=== PATIENT | female | born 1940 | race Caucasian/White ===

== ENCOUNTER 2020-08-26 09:58 | Outpatient (CLI) | payer MEDICARE, SELFPAY ==
--- NOTE | ~2020-08-26 | MM_ITS ---
EXAMINATION: MM screening felix BI w luigi HISTORY: Screening mammogram, family history of breast cancer in her sister. TECHNIQUE: Craniocaudal and mediolateral oblique 3-D tomosynthesis images were obtained and synthetic 2-D images were generated. CAD analysis was submitted and interpreted. COMPARISON: 08/23/2019, 08/19/2018, 08/16/2017 BREAST PARENCHYMAL COMPOSITION: The breasts are almost entirely fatty. FINDINGS: There is no evidence of suspicious mass, calcification, or architectural distortion to sugg est malignancy in either breast. There has been no suspicious interval change. IMPRESSION: 1. No mammographic evidence of malignancy. 2. Recommend routine screening mammography in one year. BI-RADS Category 1: Negative Reviewed, dictated and finalized at location A. E REPAIRER
== END 2020-08-26 09:59 | disposition home or self-care (01) ==
PROVIDERS: PCP Family Medicine Adolescent Medicine; Visit Provider Obstetrics & Gynecology
DX: Z12.31 Encounter for screening mammogram for malignant neoplasm of breast (principal)
CPT/HCPCS: 77063; 77067

== ENCOUNTER 2021-08-28 10:10 | Outpatient (CLI) | payer MEDICARE, SELFPAY ==
--- NOTE | ~2021-08-28 | MM_ITS ---
EXAMINATION: MM screening felix BI w luigi HISTORY: Screening mammogram TECHNIQUE: Craniocaudal and mediolateral oblique 3-D tomosynthesis images were obtained and synthetic 2-D images were generated. CAD analysis was submitted and interpreted. COMPARISON: 08/26/2020, 08/23/2019, 08/19/2018 bilateral screening mammogram examinations BREAST PARENCHYMAL COMPOSITION: The breasts are almost entirely fatty. FINDINGS: There is no evidence of suspicious mass, calcification, or architectural distortion to sugg est malignancy in either breast. There has been no suspicious interval change. IMPRESSION: 1. No mammographic evidence of malignancy. 2. Recommend routine screening mammography in one year. BI-RADS Category 1: Negative Reviewed, dictated and finalized at location A. TARY LANDFILL OPERATOR
== END 2021-08-28 10:11 | disposition home or self-care (01) ==
LOC: ANHIMG 10:12
PROVIDERS: PCP Family Medicine Adolescent Medicine; Visit Provider Obstetrics & Gynecology
DX: Z12.31 Encounter for screening mammogram for malignant neoplasm of breast (principal)
CPT/HCPCS: 77063; 77067

== ENCOUNTER 2022-11-24 15:39 | Outpatient (CLI) | payer MEDICARE, SELFPAY ==
--- NOTE | ~2022-11-24 | MM_ITS ---
EXAMINATION: MM screening felix BI w luigi HISTORY: Screening mammogram TECHNIQUE: Craniocaudal and mediolateral oblique 3-D tomosynthesis images were obtained and synthetic 2-D images were generated. CAD analysis was submitted and interpreted. COMPARISON: 08/28/2021, 08/26/2020, 08/23/2019 bilateral screening mammogram examinations BREAST PARENCHYMAL COMPOSITION: The breasts are heterogeneously dense, which may obscure small masses . FINDINGS: There is no evidence of suspicious mass, calcification, or architectural distortion to sugg est malignancy in either breast. There has been no suspicious interval change. IMPRESSION: 1. No mammographic evidence of malignancy. 2. Recommend routine screening mammography in one year. BI-RADS Category 1: Negative Reviewed, dictated and finalized at location A.
== END 2022-11-24 15:40 | disposition home or self-care (01) ==
LOC: ANHIMG 15:40
PROVIDERS: PCP Family Medicine Adolescent Medicine; Visit Provider Obstetrics & Gynecology
DX: Z12.31 Encounter for screening mammogram for malignant neoplasm of breast (principal)
CPT/HCPCS: 77063; 77067

== ENCOUNTER 2023-01-19 02:50 | Day surgery (SDC) | payer MEDICARE, SELFPAY ==
[2023-01-07 15:12] VITALS: BMI 28.5
[2023-01-19 09:33] VITALS: BP 196/63; PULSE 52; RESP 18; TEMP 36.6; O2SAT 100
[2023-01-19] MEDS: LACTATED RINGERS 1,000 ML 150 ML IV CONT (09:38)
--- NOTE | 2023-01-19 10:03 | PM.HPGS ---
History of Present Illness History of Present Illness Consent: Risks, benefits, and alternatives have been discussed and questions answered. Patient agrees to proceed with procedure. Chief complaint: neoplasm screening Narrative: Olinda Lopez is a 82 year old female Presents for screening colonoscopy. patient has a history of colon polyps. Two thousand 18 adenomatous colon polyp removed from the colon. Patient gives a family history of colon cancer in her brother. Patient reports that recently she has had intermittent bright red blood per rectum that she attributes to hemorrhoids. Is appears to worsen when she drinks coffee. Patient presents today for screening colonoscopy. Review of Systems Review of Systems: Review of systems noncontributory. [facility] Past Medical History Medical History (Updated 01/19/23 @ 10:06 by Domo Ocasio MD) Abnormal colonoscopy 11/28 Polyps Repeat 12/03 History of depression Surgical History Surgical History History of appendectomy History of hysterectomy History of thyroidectomy Family History Family History (Updated 04/27/22 @ 10:33 by Indio Small MD) Sibling Breast cancer Father Heart disease Mother Diabetes mellitus Sibling Hypertension Diabetes mellitus Other Family history of alcoholism Family history of arthritis Family history of cardiovascular disease Family history of malignant neoplasm Family history of mental disorder Social History Social History Smoking status: Never smoker Alcohol intake: never Alcohol use details: several years ago Substance use: never Substance use type: does not use Living arrangements: alone Occupation/Education: retired Gender identity (if verbalized by the patient): Female Sexual Orientation (if Verbalized by the Patient): Straight or Heterosexual Spiritual care concerns: No Agree to blood products: Yes Meds Home Medications and Allergies Home Medications Medication Instructions Recorded Confirmed Type acetaminophen 500 mg/15 mL oral 1,000 mg PO Q6H PRN pain 10/27/21 01/19/23 History liquid ascorbic acid (vitamin C) 500 mg 250 mg PO DAILY 10/27/21 01/19/23 History tablet multivitamin 1 tablet PO DAILY 10/27/21 01/19/23 History resveratrol 100 mg capsule 100 mg PO DAILY 10/27/21 01/19/23 History Cinnamon 1 tab-cap PO DAILY 01/07/23 01/19/23 History levothyroxine 75 mcg tablet 75 mcg PO DAILY 01/19/23 01/19/23 History (Synthroid) losartan 100 mg tablet 100 mg PO DAILY 01/19/23 01/19/23 History metoprolol tartrate 75 mg tablet 75 mg PO BID 01/19/23 01/19/23 History rosuvastatin 10 mg tablet 10 mg PO DAILY 01/19/23 01/19/23 History Allergies Allergy/AdvReac Type Severity Reaction Status Date / Time amlodipine Allergy Severe throat Verified 01/19/23 09:30 closure Sulfa (Sulfonamide Allergy Severe throat Verified 01/19/23 09:30 Antibiotics) swelling chocolate flavor Allergy Intermediate causes Verified 01/19/23 09:30 blood in stool lisinopril Allergy Mild Unknown Verified 01/19/23 09:30 coffee (Coffea arabica) Allergy Unknown Verified 01/19/23 09:30 glycerin AdvReac Intermediate BURNING OF Verified 01/19/23 09:30 SKIN mineral oil AdvReac Unknown BURNING OF Verified 01/19/23 09:30 SKIN Chocolate AdvReac Unknown BURNING Uncoded 01/19/23 09:30 IN COLON Cola Drinks AdvReac Unknown BURNING Uncoded 01/19/23 09:30 IN COLON Vital Signs Vital Signs - 24 hr 01/19/23 09:33 Temperature 97.9 F Pulse Rate 52 L Respiratory Rate 18 Blood Pressure 196/63 H Pulse Oximetry 100 Oxygen Delivery Room Air Exam Narrative: Physical exam reveals patient to be alert. Vital signs stable. HEENT exam is unremarkable. Patient is anicteric. Lungs are clear to auscultation and percussion. Heart is without murm
--- NOTE | 2023-01-19 10:06 | WPDANESEPPF ---
Anes - Initial Pre Proc Eval Procedure: Operation Date: 01/19/23 10:45 Proposed Procedures p Screening Colonoscopy - Domo Ocasio MD Date/Time: 01/19/23 10:06 Surgeon: Domo Ocasio MD Pre Op Diagnosis: neoplasm screening Patient Data Age: 82 Gender: F Height: 1.6 m Weight: 71.9 kg Last Vital Signs Temp 97.9 F 01/19/23 09:33 Pulse 52 L 01/19/23 09:33 Resp 18 01/19/23 09:33 BP 196/63 H 01/19/23 09:33 Pulse Ox 100 01/19/23 09:33 O2 Del Method Room Air 01/19/23 09:33 Allergies Allergy/AdvReac Type Severity Reaction Status Date / Time amlodipine Allergy Severe throat Verified 01/19/23 09:30 closure Sulfa (Sulfonamide Allergy Severe throat Verified 01/19/23 09:30 Antibiotics) swelling chocolate flavor Allergy Intermediate causes Verified 01/19/23 09:30 blood in stool lisinopril Allergy Mild Unknown Verified 01/19/23 09:30 coffee (Coffea arabica) Allergy Unknown Verified 01/19/23 09:30 glycerin AdvReac Intermediate BURNING OF Verified 01/19/23 09:30 SKIN mineral oil AdvReac Unknown BURNING OF Verified 01/19/23 09:30 SKIN Chocolate AdvReac Unknown BURNING Uncoded 01/19/23 09:30 IN COLON Cola Drinks AdvReac Unknown BURNING Uncoded 01/19/23 09:30 IN COLON Home Medications Medication Instructions Recorded Confirmed Type acetaminophen 500 mg/15 mL oral 1,000 mg PO Q6H PRN pain 10/27/21 01/19/23 History liquid ascorbic acid (vitamin C) 500 mg 250 mg PO DAILY 10/27/21 01/19/23 History tablet multivitamin 1 tablet PO DAILY 10/27/21 01/19/23 History resveratrol 100 mg capsule 100 mg PO DAILY 10/27/21 01/19/23 History Cinnamon 1 tab-cap PO DAILY 01/07/23 01/19/23 History levothyroxine 75 mcg tablet 75 mcg PO DAILY 01/19/23 01/19/23 History (Synthroid) losartan 100 mg tablet 100 mg PO DAILY 01/19/23 01/19/23 History metoprolol tartrate 75 mg tablet 75 mg PO BID 01/19/23 01/19/23 History rosuvastatin 10 mg tablet 10 mg PO DAILY 01/19/23 01/19/23 History Patient hx anesthesia problems: none Family hx anesthesia problems: none Results Review: All pre-operative results and documents have been reviewed as part of the pre-operative evaluation. COUNTS INCLUDE 234 BEDS AT THE [facility] Past Medical History Medical History (Updated 01/19/23 @ 10:06 by Domo Ocasio MD) Abnormal colonoscopy 11/28 Polyps Repeat 12/03 History of depression Surgical History Surgical History History of appendectomy History of hysterectomy History of thyroidectomy Family History Family History (Updated 04/27/22 @ 10:33 by Indio Small MD) Sibling Breast cancer Father Heart disease Mother Diabetes mellitus Sibling Hypertension Diabetes mellitus Other Family history of alcoholism Family history of arthritis Family history of cardiovascular disease Family history of malignant neoplasm Family history of mental disorder Social History Social History Smoking status: Never smoker Alcohol intake: never Alcohol use details: several years ago Substance use: never Substance use type: does not use Living arrangements: alone Occupation/Education: retired Gender identity (if verbalized by the patient): Female Sexual Orientation (if Verbalized by the Patient): Straight or Heterosexual Spiritual care concerns: No Agree to blood products: Yes Anes - Eval Final PreProcedure Day of Procedure 01/19/23 10:06 Patient weight: normal Heart: regular rate and rhythm Lungs: clear to auscultation Airway: Mallampati scale class II Neurological: alert and oriented Last oral intake: >/= 8 hours ASA classification: II Emergent: no Anesthetic plan: proceed Anesthesia type and monitoring: general GIVS and standard monitoring Results Review: All pre-operative results and documents have been reviewed as part of the pre-operative evaluati
[2023-01-19 10:45] VITALS: BP 169/74; PULSE 67; RESP 15; O2SAT 100
[2023-01-19 10:55] VITALS: BP 167/66; PULSE 61; RESP 18; O2SAT 100
[2023-01-19 11:05] VITALS: BP 170/70; PULSE 66; RESP 18; O2SAT 100
== END 2023-01-19 11:10 | disposition home or self-care (01) ==
PROVIDERS: PCP Family Medicine Adolescent Medicine; Visit Provider Internal Medicine Gastroenterology
PROC: 0DJD8ZZ Inspection of Lower Intestinal Tract, Via Natural or Artificial Opening Endoscopic (ICD-10-PCS; CPT 45378; principal; 2023-01-19 10:45)
DX: Z12.11 Encounter for screening for malignant neoplasm of colon (principal); K64.8 Other hemorrhoids; K57.30 Diverticulosis of large intestine without perforation or abscess without bleeding; D12.2 Benign neoplasm of ascending colon; Z80.0 Family history of malignant neoplasm of digestive organs
CPT/HCPCS: 45385; 88305; J2704; J7120

== ENCOUNTER 2023-12-06 09:40 | Outpatient (CLI) | payer MEDICARE, SELFPAY ==
--- NOTE | ~2023-12-06 | MM_ITS ---
EXAMINATION: MM screening felix BI w luigi HISTORY: Screening mammogram TECHNIQUE: Craniocaudal and mediolateral oblique 3-D tomosynthesis images were obtained and synthetic 2-D images were generated. CAD analysis was submitted and interpreted. COMPARISON: 11/24/2022, 08/28/2021 bilateral screening mammogram examinations BREAST PARENCHYMAL COMPOSITION: The breasts are almost entirely fatty. FINDINGS: There is no evidence of suspicious mass, calcification, or architectural distortion to sugg est malignancy in either breast. There has been no suspicious interval change. IMPRESSION: 1. No mammographic evidence of malignancy. 2. Recommend routine screening mammography in one year. BI-RADS Category 1: Negative Reviewed, dictated and finalized at location A.
== END 2023-12-06 09:41 | disposition home or self-care (01) ==
LOC: ANHIMG 09:41
PROVIDERS: PCP Family Medicine Adolescent Medicine; Visit Provider Obstetrics & Gynecology
DX: Z12.31 Encounter for screening mammogram for malignant neoplasm of breast (principal)
CPT/HCPCS: 77063; 77067

== ENCOUNTER 2024-06-27 11:05 | Emergency (ER) | payer MEDICARE, SELFPAY ==
--- NOTE | ~2024-06-27 | XR_ITS ---
EXAMINATION: XR foot RT min 3V DATE: 06/27/2024 11:42 INDICATION: Lateral right foot pain TECHNIQUE: Dorsoplantar, two oblique and lateral views of the right foot were obtained. COMPARISON: None. FINDINGS: 23 degrees hallux valgus and 3 mm lateral subluxation at the first metatarsophalangeal joint. Alignme nt of the remainder of the right foot is normal. No fracture. Polyarticular osteoarthritis in the mid and forefoot, moderate to severe at the first metatarsophalangeal joint and mild at multiple tarsome tatarsal and interphalangeal and remaining metatarsophalangeal joints. Moderate-sized Achilles and pl carlos calcaneal spurs. Osteopenia. Vascular calcifications at the right foot. IMPRESSION: 1. 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 2. Additional mild polyarticular osteoarthritis in the mid and forefoot. Reviewed, dictated and finalized at location A. IMPRESSION: 1. Hallux valgus with moderate to severe osteoarthritis at the first metatarsop halangeal joint. 2. Additional mild polyarticular osteoarthritis in the mid and forefoot.
--- NOTE | 2024-06-27 11:27 | ED.LOWEXIN ---
HPI - Extremity Injury (Lower) General Chief Complaint: Extremity Injury, Lower Stated Complaint: lower extremity injury Time Seen by Provider: 06/27/24 11:27 Source: patient, RN notes reviewed and old records reviewed Mode of arrival: ambulatory Limitations: no limitations History of Present Illness HPI Narrative: 83-year-old female presents to the [facility] with right foot pain. Patient states she has started wearing new shoes. No problem with the med firs. Yesterday started having some right lateral foot pain. Reports a history of a fracture Related Data Home Medications Medication Instructions Recorded Confirmed acetaminophen 500 mg/15 mL oral 1,000 mg PO Q6H PRN pain 10/27/21 05/09/24 liquid ascorbic acid (vitamin C) 500 mg 250 mg PO DAILY 10/27/21 05/09/24 tablet multivitamin 1 tablet PO DAILY 10/27/21 05/09/24 resveratrol 100 mg capsule 100 mg PO DAILY 10/27/21 05/09/24 Cinnamon 1 tab-cap PO DAILY 01/07/23 05/09/24 ashwagandha extract 120 mg capsule mg PO 05/09/24 05/09/24 brimonidine 0.2 %-timolol 0.5 % 1 drp LEFT EYE BID 05/09/24 05/09/24 eye drops flurbiprofen sodium 0.03 % eye 1 drp LEFT EYE TID 05/09/24 05/09/24 drops prednisolone acetate 1 % eye 1 drp LEFT EYE TID 05/09/24 05/09/24 drops,suspension Allergies Allergy/AdvReac Type Severity Reaction Status Date / Time amlodipine Allergy Severe throat Verified 04/12/24 11:13 closure Sulfa (Sulfonamide Allergy Severe throat Verified 04/12/24 11:13 Antibiotics) swelling chocolate flavor Allergy Intermediate causes Verified 04/12/24 11:13 blood in stool lisinopril Allergy Mild Unknown Verified 04/12/24 11:13 coffee (Coffea arabica) Allergy Unknown Verified 04/12/24 11:13 glycerin AdvReac Intermediate BURNING OF Verified 04/12/24 11:13 SKIN mineral oil AdvReac Unknown BURNING OF Verified 04/12/24 11:13 SKIN Chocolate AdvReac Unknown BURNING Uncoded 04/12/24 11:13 IN COLON Cola Drinks AdvReac Unknown BURNING Uncoded 04/12/24 11:13 IN COLON Review of Systems Review of Systems: All systems reviewed & are unremarkable except as noted in HPI and below Constitutional: Constitutional: Reports no additional constitutional complaints Eyes: Eyes: Reports no additional eye complaints ENT: Reports system reviewed and no additional complaints, except as documented Cardiovascular: Cardiovascular: Reports no additional cardiovascular complaints, Denies chest pain and Denies dyspnea Respiratory: Respiratory: Reports no additional respiratory complaints, Denies chest congestion, Denies cough and Denies dyspnea Gastrointestinal: Gastrointestinal: Reports no additional gastrointestinal complaints, Denies abdominal pain, Denies nausea and Denies vomiting Musculoskeletal: Musculoskeletal: Reports as per HPI Integumentary/Breasts: Skin/Breast: Reports system reviewed and no additional complaints, except as docu Neurologic: Reports system reviewed and no additional complaints, except as documented Psychiatric: Psychiatric: Reports no additional psychiatric complaints Allergic/Immunologic: Allergic/Immunologic: Reports no additional allergic/immunologic complaints PMFSH Past Medical History Medical History Abnormal colonoscopy 11/28 Polyps Repeat 12/03 02/02 Tubular adenoma History of depression Surgical History Surgical History History of appendectomy History of hysterectomy History of thyroidectomy Hx of cataract extraction right eye February 2024, left April 2024 Family History Family History Sibling Breast cancer Father Heart disease Mother Diabetes mellitus Sibling Hypertension Diabetes mellitus Other Family history of alcoholism Family history of arthritis Family history of cardiovascular disease Family history of malign
[2024-06-27 11:30] VITALS: BP 177/69; PULSE 56; RESP 16; TEMP 36.3; O2SAT 99
== END 2024-06-27 12:07 | disposition home or self-care (01) ==
PROVIDERS: Emergency Provider Nurse Practitioner; PCP Family Medicine Adolescent Medicine
DX: M79.671 Pain in right foot (principal); M19.071 Primary osteoarthritis, right ankle and foot; E89.0 Postprocedural hypothyroidism; Z98.42 Cataract extraction status, left eye; Z98.41 Cataract extraction status, right eye
CPT/HCPCS: 73630; 99213; G0463

== ENCOUNTER 2025-01-05 14:52 | Outpatient (CLI) | payer MEDICARE, SELFPAY ==
--- NOTE | ~2025-01-05 | MM_ITS ---
EXAMINATION: MM screening felix BI w luigi HISTORY: Screening TECHNIQUE: Craniocaudal and mediolateral oblique 3-D tomosynthesis images were obtained and synthetic 2-D images were generated. CAD analysis was submitted and interpreted. COMPARISON: 08/19/2018 BREAST PARENCHYMAL COMPOSITION: Not dense: There are scattered areas of fibroglandular density. FINDINGS: There is no evidence of suspicious mass, calcification, or architectural distortion to sugg est malignancy in either breast. There has been no suspicious interval change. IMPRESSION: 1. No mammographic evidence of malignancy. 2. Recommend routine screening mammography in one year. BI-RADS Category 1: Negative Reviewed, dictated and finalized at location A.
--- OUTSIDE RECORDS SUMMARY | 2025-01-05 14:56 | XMS_ITS | Continuity of Care Document ---
Author Organization [facility] [place] [address] [place] [address] Phone Care Team Providers Care Circus Rider Name Role Phone Tara Rai Unavailable Unavailable Procedures Procedure Date Eye Exam & Treatment Refraction Eye Exam & Treatment Refraction Eye Exam & Treatment Refraction Eye Exam & Treatment Refraction Advance Directives Directive Yes / No Effective Date File Name No Information Encounters Encounter Description Practice Location Reason(s) For Visit Diagnoses Date Provider Providers Copied on Encounter [facility], [address] [place] [address] [address], [place], [place], [id number], tel:[phone] [facility] No Information 6-201 0 Cecelia Sheikh [address] , [address], [place], [address], [place]. tel:[phone] [facility], [address], [place], [place], [id number], [place] tel:[phone] [facility] No Information 0-200 9 Cecelia Sheikh [address] , [address], [place], [address], [place]. tel:[phone] [facility], [address] [place] [address] [address], [place], [place], [id number], [place] tel:[phone] [facility] No Information Nov-0 7-200 8 Cecelia Pacheco. [address] , [address], [place], [place], [facility], . tel:[phone] [facility], [address], [place], [place], [id number], tel:[phone] [facility] No Information Nov-0 6-200 7 Cecelia Sheikh [address] , [address], [place], [address], . tel:[phone] Family History Family Member Type Diagnosis Age At Onset No Information Payers Payer name Insurance type Covered republican ID errol shaikh(s) [employer] Plan [id number] Social History Type Description Quantity Date Captured Comments Sex Female Smoking Status No Information Chief Complaint And Reason For Visit No Information Reason For Referral Reason For Referral No Information History Of Present Illness Encounter Date Complaint History Of Prese nt Illness No Information Functional Status Date Functional Assessmen t No Information Instructions Date Instruction Additional Infor mation No Information Assessments Type Assessment Date No Information Patient Care Teams Name Effective Dates (start - stop) Status Members No Information
--- OUTSIDE RECORDS SUMMARY | 2025-01-05 14:56 | XMS_ITS | Encounter Summary ---
Author Organization [facility] Address [address] [place] [address] Care Team Providers Care Plate Stacker Hand Name Role Phone Unavailable Primary Care Provider Unavailabl e Encounter Details Date Type Department Care Team (Late st Contact Info) Description 01/07/1999 Outpatient Historical [facility] Zander Combs MD NO ADDRESS ON FILE Diverticulosis of colon (without mention of hemorrhage) (Primary Dx) Social History Tobacco Use Types Packs/Day Years Used Date Smoking Tobacco: Never Assessed Comments Unknown Sex and Gender Information Value Date Recorded Sex Assigned at Not on file Legal Sex Female 3:02 AM RESIDENTIAL BUILDER Gender Identity Not on file Sexual Orientation Not on file documented as of this encounter Plan of Treatment Not on file documented as of this encounter Visit Diagnoses Diagnosis Diverticulosis of colon (without mention of hemorrhage)- Primary documented in this encounter
--- OUTSIDE RECORDS SUMMARY | 2025-01-05 14:56 | XMS_ITS | Encounter Summary ---
Author Organization [facility] Address [address] Attn: Epic Prel[address]T [place] [address] Care Team Providers Care Breed To Wean Production Technician Name Role Phone Unavailable Primary Care Provider Unavailabl e Encounter Details Date Type Department Care Team (Late st Contact Info) Description 01/06/1994 Outpatient Historical Lv Bueno MD NO ADDRESS ON FILE Social History Tobacco Use Types Packs/Day Years Used Date Smoking Tobacco: Never Assessed Comments Unknown Sex and Gender Information Value Date Recorded Sex Assigned at Not on file Legal Sex Female 3:02 AM RN TRANSITIONAL CARE Gender Identity Not on file Sexual Orientation Not on file documented as of this encounter Plan of Treatment Not on file documented as of this encounter Visit Diagnoses Not on filedocumented in this encounter
--- OUTSIDE RECORDS SUMMARY | 2025-01-05 14:56 | XMS_ITS | Encounter Summary ---
Author Organization [facility] Address [address] [facility] Attn: Epic Prelude [address] [place] [address] Care Team Providers Care Refrigerator Mover Name Role Phone Unavailable Primary Care Provider Unavailabl e Encounter Details Date Type Department Care Team (Late st Contact Info) Description 08/14/1997 Outpatient Historical Conversion, History Lv Bueno MD NO ADDRESS ON FILE Social History Tobacco Use Types Packs/Day Years Used Date Smoking Tobacco: Never Assessed Comments Unknown Sex and Gender Information Value Date Recorded Sex Assigned at Not on file Legal Sex Female 3:02 AM BUN ICER Gender Identity Not on file Sexual Orientation Not on file documented as of this encounter Plan of Treatment Not on file documented as of this encounter Visit Diagnoses Not on filedocumented in this encounter
--- OUTSIDE RECORDS SUMMARY | 2025-01-05 14:56 | XMS_ITS | Encounter Summary ---
Author Organization [facility] Address [address] [facility] Attn: Epic Prelude ADT [place] [address] Care Team Providers Care Signal Tower Director Name Role Phone Unavailable Primary Care Provider Unavailabl e Encounter Details Date Type Department Care Team (Late st Contact Info) Description 03/31/1995 Outpatient Historical Lv Bueno MD NO ADDRESS ON FILE Social History Tobacco Use Types Packs/Day Years Used Date Smoking Tobacco: Never Assessed Comments Unknown Sex and Gender Information Value Date Recorded Sex Assigned at Not on file Legal Sex Female 3:02 AM AUDITING CODER Gender Identity Not on file Sexual Orientation Not on file documented as of this encounter Plan of Treatment Not on file documented as of this encounter Visit Diagnoses Not on filedocumented in this encounter
--- OUTSIDE RECORDS SUMMARY | 2025-01-05 14:56 | XMS_ITS | Encounter Summary ---
Author Organization [facility] Address [address] [place] [address] Care Team Providers Care Water Resources Engineer Name Role Phone Unavailable Primary Care Provider Unavailabl e Encounter Details Date Type Department Care Team (Late st Contact Info) Description 09/26/2001 Outpatient Historical [facility] Conversion, History HEMATURIA (Primary Dx) Social History Tobacco Use Types Packs/Day Years Used Date Smoking Tobacco: Never Assessed Comments Unknown Sex and Gender Information Value Date Recorded Sex Assigned at Not on file Legal Sex Female 3:02 AM EPITAXIAL REACTOR TECHNICIAN Gender Identity Not on file Sexual Orientation Not on file documented as of this encounter Plan of Treatment Not on file documented as of this encounter Visit Diagnoses Diagnosis Hematuria- Primary documented in this encounter
--- OUTSIDE RECORDS SUMMARY | 2025-01-05 14:56 | XMS_ITS | Encounter Summary ---
Author Organization [facility] Address [address] [facility] Attn: Epic Prelude ADT [place] [address] Care Team Providers Care Electrical Logging Operator Name Role Phone Unavailable Primary Care Provider Unavailabl e Encounter Details Date Type Department Care Team (Late st Contact Info) Description 08/14/1991 Outpatient Historical Lv Bueno MD NO ADDRESS ON FILE Social History Tobacco Use Types Packs/Day Years Used Date Smoking Tobacco: Never Assessed Comments Unknown Sex and Gender Information Value Date Recorded Sex Assigned at Not on file Legal Sex Female 3:02 AM GEODUCK DIVER Gender Identity Not on file Sexual Orientation Not on file documented as of this encounter Plan of Treatment Not on file documented as of this encounter Visit Diagnoses Not on filedocumented in this encounter
--- OUTSIDE RECORDS SUMMARY | 2025-01-05 14:56 | XMS_ITS | Encounter Summary ---
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
--- OUTSIDE RECORDS SUMMARY | 2025-01-05 14:56 | XMS_ITS | Encounter Summary ---
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
--- OUTSIDE RECORDS SUMMARY | 2025-01-05 14:56 | XMS_ITS | Encounter Summary ---
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
--- OUTSIDE RECORDS SUMMARY | 2025-01-05 14:56 | XMS_ITS | Encounter Summary ---
Author Organization [facility] Address [address] [facility] Attn: Epic Prelude ADT [place]AL[place] [address] Care Team Providers Care Still Pump Operator Name Role Phone Unavailable Primary Care Provider Unavailabl e Encounter Details Date Type Department Care Team (Late st Contact Info) Description 03/24/1993 Outpatient Historical [facility] 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
--- OUTSIDE RECORDS SUMMARY | 2025-01-05 14:56 | XMS_ITS | Encounter Summary ---
Author Organization [facility] Address 5 [facility] Attn: Epic Prelude ADT CREALEE KIM [phone] Care Team Providers Care Solar Photovoltaic Installer Name Role Phone Unavailable Primary Care Provider Unavailabl e Encounter Details Date Type Department Care Team (Late st Contact Info) Description 10/28/1992 Outpatient Historical Lv Bueno MD NO ADDRESS ON FILE Social History Tobacco Use Types Packs/Day Years Used Date Smoking Tobacco: Never Assessed Comments Unknown Sex and Gender Information Value Date Recorded Sex Assigned at Not on file 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
--- OUTSIDE RECORDS SUMMARY | 2025-01-05 14:56 | XMS_ITS | Encounter Summary ---
Author Organization [facility] Address 5 [facility] Attn: Epic Prelude ADT CREAL[place] KIM [address] Care Team Providers Care Sat Act Instructor Name Role Phone Unavailable Primary Care Provider Unavailabl e Encounter Details Date Type Department Care Team (Late st Contact Info) Description 05/04/1997 Outpatient Historical Conversion, History Lv Bueno MD NO ADDRESS ON FILE Social History Tobacco Use Types Packs/Day Years Used Date Smoking Tobacco: Never Assessed Comments Unknown Sex and Gender Information Value Date Recorded Sex Assigned at Not on file 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
--- OUTSIDE RECORDS SUMMARY | 2025-01-05 14:56 | XMS_ITS | Encounter Summary ---
Author Organization [facility] Address 5 [facility] Attn: Epic Prelude ADT CREAL[place] KIM [phone] Care Team Providers Care Residential Program Director Name Role Phone Unavailable Primary Care Provider Unavailabl e Encounter Details Date Type Department Care Team (Late st Contact Info) Description 09/24/1995 Outpatient Historical Lv Bueno MD NO ADDRESS ON FILE Social History Tobacco Use Types Packs/Day Years Used Date Smoking Tobacco: Never Assessed Comments Unknown Sex and Gender Information Value Date Recorded Sex Assigned at Not on file Legal Sex 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
--- OUTSIDE RECORDS SUMMARY | 2025-01-05 14:56 | XMS_ITS | Encounter Summary ---
Author Organization [employer] Address 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
--- OUTSIDE RECORDS SUMMARY | 2025-01-05 14:56 | XMS_ITS | Encounter Summary ---
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
--- OUTSIDE RECORDS SUMMARY | 2025-01-05 14:56 | XMS_ITS | Encounter Summary ---
Author Organization [facility] Address 5 [facility] Attn: Epic Prelude ADT CREALEE KIM [address] Care Team Providers Care Laser Cutter Name Role Phone Unavailable Primary Care Provider Unavailabl e Encounter Details Date Type Department Care Team (Late st Contact Info) Description 02/12/1993 Outpatient Historical Lv Bueno MD NO ADDRESS ON FILE Social History Tobacco Use Types Packs/Day Years Used Date Smoking Tobacco: Never Assessed Comments Unknown Sex and Gender Information Value Date Recorded Sex Assigned at Not on file Legal Sex Female 3:02 AM PATIENT CARE SECRETARY Gender Identity Not on file Sexual Orientation Not on file documented as of this encounter Plan of Treatment Not on file documented as of this encounter Visit Diagnoses Not on filedocumented in this encounter
--- OUTSIDE RECORDS SUMMARY | 2025-01-05 14:56 | XMS_ITS | Clinical Summary ---
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
--- OUTSIDE RECORDS SUMMARY | 2025-01-05 14:56 | XMS_ITS | Encounter Summary ---
Author Organization [facility] Address 5 [facility] Attn: Epic Prelude ADT CREBENJA ARNOLD ALEE [address] Care Team Providers Care Cutter Head Sharpener Name Role Phone Unavailable Primary Care Provider Unavailabl e Encounter Details Date Type Department Care Team (Late st Contact Info) Description 11/07/1998 Outpatient Historical Social History Tobacco Use Types Packs/Day Years Used Date Smoking Tobacco: Never Assessed Comments Unknown Sex and Gender Information Value Date Recorded Sex Assigned at Not on file Legal Sex Female 3:02 AM RESOURCE AGENT Gender Identity Not on file Sexual Orientation Not on file documented as of this encounter Plan of Treatment Not on file documented as of this encounter Visit Diagnoses Not on filedocumented in this encounter
--- OUTSIDE RECORDS SUMMARY | 2025-01-05 14:56 | XMS_ITS | Encounter Summary ---
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
--- OUTSIDE RECORDS SUMMARY | 2025-01-05 14:56 | XMS_ITS | Encounter Summary ---
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
--- OUTSIDE RECORDS SUMMARY | 2025-01-05 14:56 | XMS_ITS | Encounter Summary ---
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
--- OUTSIDE RECORDS SUMMARY | 2025-01-05 14:56 | XMS_ITS | Encounter Summary ---
Author Organization [facility] Address 5 [facility] Attn: Epic Prelude ADT CREAL[place] KIM [address] Care Team Providers Care Roller Gold Leaf Name Role Phone Unavailable Primary Care Provider Unavailabl e Encounter Details Date Type Department Care Team (Late st Contact Info) Description 12/17/1992 Outpatient Historical Lv Bueno MD NO ADDRESS ON FILE Social History Tobacco Use Types Packs/Day Years Used Date Smoking Tobacco: Never Assessed Comments Unknown Sex and Gender Information Value Date Recorded Sex Assigned at Not on file Legal Sex Female 3:02 AM TECHNICAL SOLUTIONS DIRECTOR Gender Identity Not on file Sexual Orientation Not on file documented as of this encounter Plan of Treatment Not on file documented as of this encounter Visit Diagnoses Not on filedocumented in this encounter
--- OUTSIDE RECORDS SUMMARY | 2025-01-05 14:56 | XMS_ITS | Encounter Summary ---
Author Organization [facility] Address [address] [facility] Attn: Epic Prelude ADT CREAL[place] K[place] [address] Care Team Providers Care Marine Structural Welder Name Role Phone Unavailable Primary Care Provider Unavailabl e Encounter Details Date Type Department Care Team (Late st Contact Info) Description 06/04/1995 Outpatient Historical Lv Bueno MD NO ADDRESS ON FILE Social History Tobacco Use Types Packs/Day Years Used Date Smoking Tobacco: Never Assessed Comments Unknown Sex and Gender Information Value Date Recorded Sex Assigned at Not on file Legal Sex Female 3:02 AM CODING DIRECTOR Gender Identity Not on file Sexual Orientation Not on file documented as of this encounter Plan of Treatment Not on file documented as of this encounter Visit Diagnoses Not on filedocumented in this encounter
--- OUTSIDE RECORDS SUMMARY | 2025-01-05 14:56 | XMS_ITS | Encounter Summary ---
Author Organization [facility] Address 5 [facility] Attn: Epic Prelude ADT CREAL[place] KIM [address] Care Team Providers Care Fisher Swordfish Name Role Phone Unavailable Primary Care Provider Unavailabl e Encounter Details Date Type Department Care Team (Late st Contact Info) Description 02/02/1995 Outpatient Historical Lv Bueno MD NO ADDRESS ON FILE Social History Tobacco Use Types Packs/Day Years Used Date Smoking Tobacco: Never Assessed Comments Unknown Sex and Gender Information Value Date Recorded Sex Assigned at Not on file Legal Sex Female 3:02 AM BUSINESS ADMINISTRATION PROGRAM CHAIR Gender Identity Not on file Sexual Orientation Not on file documented as of this encounter Plan of Treatment Not on file documented as of this encounter Visit Diagnoses Not on filedocumented in this encounter
== END 2025-01-05 14:53 | disposition home or self-care (01) ==
LOC: ANHIMG 14:54
PROVIDERS: PCP Family Medicine Adolescent Medicine; Visit Provider Obstetrics & Gynecology
DX: Z12.31 Encounter for screening mammogram for malignant neoplasm of breast (principal)
CPT/HCPCS: 77063; 77067